=== PATIENT | male | born 1975 | race Caucasian/White ===

== ENCOUNTER 2018-02-23 16:04 | Emergency (ER) | payer OTHER ==
[~2018-02-23] VITALS: Ht 180.3 cm; Wt 98.2 kg
[~2018-02-23 16:04] MED LIST: BACTRIM,SEPT1 TABLET PO; KEFLEX500 MG PO; MOTRIN800 MG PO; NOHOMEMEDS; PERCOCET 5/31 TABLET PO; TORADOL10 MG PO
[2018-02-23 16:10] VITALS: BP 123/79
[2018-02-23] MEDS ORDERED: MOTRIN800 MG PO (18:22)
== END 2018-02-23 18:37 | disposition home or self-care (01) ==
LOC: EME 16:04
DX: S93.402A Sprain of unspecified ligament of left ankle, initial encounter (principal); M79.605 Pain in left leg; W01.0XXA Fall on same level from slipping, tripping and stumbling without subsequent striking against object, initial encounter; Y99.0 Civilian activity done for income or pay; Z87.891 Personal history of nicotine dependence; Z88.8 Allergy status to other drugs, medicaments and biological substances
CPT/HCPCS: 73610; 99281; 99284